=== PATIENT | female | born 1970 | race Caucasian/White ===

== ENCOUNTER → 2017-10-26 | Day surgery (SDC) | payer OTHER ==
[~2017-10-26] MED LIST: Lidocaine 1% 20 ML MDV ONE
--- NOTE | 2017-10-27 10:14 | OR ---
DATE OF OPERATION: 10/27/2017 PREOPERATIVE DIAGNOSIS: VENOUS INSUFFICIENCY WITH PAINFUL VARICOSE VEINS. POSTOPERATIVE DIAGNOSIS: VENOUS INSUFFICIENCY WITH PAINFUL VARICOSE VEINS. SURGEON: Rajesh Anthony MD PROCEDURE: MARIANA LEFT GSV. ANESTHESIA: Local with tumescent. COMPLICATIONS: None. SPECIMEN: None. FINDINGS: Successful MARIANA, left GSV. INDICATIONS: The patient has documented venous insufficiency at the saphenofemoral junction. She has a painful symptomatic varicosities and elected to proceed with endovenous ablation. DESCRIPTION OF PROCEDURE: The patient was brought to the operating room suite and the insufficient saphenous vein was mapped via ultrasound and diagrammed on the overlying skin. The entire limb was prepped and draped in sterile fashion. The patient was placed in a reverse Trendelenburg position and anesthesia instilled over the access site at the level of the knee. The vein was accessed using ultrasound guidance and Seldinger technique with a guidewire introduced through the needle. The needle was removed. A small incision was made with 11 blade scalpel and a 6-[place] sheath was advanced over the guidewire into the vein without any complication. Sheath was held in place by skin tension. Guidewire was removed. The sheath was flushed and radiofrequency probe was placed into the vein through the sheath and positioned approximately 2.2 cm distal to the saphenofemoral junction under ultrasound guidance. After probe position, again verified via ultrasound, tumescent anesthesia was infiltrated under ultrasound guidance into the perivenous compartment along the length of the vein from the entry site to the saphenofemoral junction until a halo affect was noted around the vein. The patient was placed back in Trendelenburg position to exsanguinate the superficial system. Once radiofrequency probe position again confirmed via ultrasound and under direct external compression along the length of the heating element, radiofrequency energy was applied. The vein was segmentally ablated heating at 7 cm segment and indexing the catheter forward 6.5 cm until the treatment length complete. Device temperature was maintained at 120 degrees Celsius with an initial power level of 40 heart, dropping below 20 for each treatment. Total treatment time was 4 minutes with 12 radiofrequency cycles and a total of 650 mL of tumescent was used. Repeat ultrasound confirmed successful treatment. Catheter and sheath were withdrawn without problem and hemostasis was achieved with direct pressure. Skin incision was closed with a bandage and compression wrap was applied from the level of the foot to the groin. The patient was stable in recovery room. NERI/POP /[id number]
== END ==
LOC: CC.SDS 06:25
PROVIDERS: ATTEND Family Medicine
DX: I87.2 Venous insufficiency (chronic) (peripheral) (principal); I83.812 Varicose veins of left lower extremity with pain; Z88.2 Allergy status to sulfonamides
CPT/HCPCS: 36475; A4216

== ENCOUNTER → 2018-09-12 | Day surgery (SDC) | payer OTHER ==
--- NOTE | 2018-09-19 23:24 | OR ---
DATE OF OPERATION: 09/12/2018 PREOPERATIVE DIAGNOSIS: INSUFFICIENT RIGHT ANTERIOR ACCESSORY VEIN WITH ASSOCIATED PAINFUL VARICOSITIES. POSTOPERATIVE DIAGNOSIS: INSUFFICIENT RIGHT ANTERIOR ACCESSORY VEIN WITH ASSOCIATED PAINFUL VARICOSITIES. SURGEON: Rajesh Anthony MD PROCEDURE: ATTEMPTED MARIANA RIGHT ANTERIOR ACCESSORY VEIN. ANESTHESIA: Local. COMPLICATIONS: None. SPECIMEN: None. FINDINGS: Unsuccessful endovenous ablation, right anterior accessory vein. INDICATIONS: The patient has a prior endovenous ablation. She has painful varicosities in her right upper leg associated with a short segment anterior accessory vein, which is slightly tortuous. We elected to attempt endovenous ablation. DESCRIPTION OF PROCEDURE: The patient was brought to the operating room site and the insufficient right anterior accessory vein in the upper thigh diagrammed and mapped via ultrasound on the overlying skin. The entire leg was prepped and draped in sterile fashion. The patient was placed in reverse Trendelenburg position. Access site was isolated, 1% lidocaine was used for local anesthesia, and using Seldinger technique we were able to access the site with a needle and insert a guidewire. A small incision was made with an 11-blade scalpel. After needle was removed and wire left in the vein, we were able to place a sheath over the guidewire. Unfortunately, the tortuous segment was unable to be threaded with the sheath to facilitate placement of endovenous catheter. Multiple repeat attempts were made and were unsuccessful at accessing as the vein clamped down pretty tight after the initial catheter placement perforated the vein wall. We elected to terminate the procedure at that point. There were no complications. The patient was stable in the recovery room. NERI/POP /[id number]
== END ==
LOC: CC.SDS 08:43
PROVIDERS: ATTEND Family Medicine
DX: I83.811 Varicose veins of right lower extremity with pain (principal); I87.2 Venous insufficiency (chronic) (peripheral)
CPT/HCPCS: 36475; A4216

== ENCOUNTER → 2020-06-19 | Day surgery (SDC) | payer OTHER ==
[~2020-06-19] MED LIST changes: +Ketamine 200 MG/20 ML MDV IV ONE; +Lactated Ringers 1,000 ML IV SCH; -Lidocaine 1% 20 ML MDV ONE; +Propofol 200 MG/20 ML SDV IV ONE; +fentaNYL 100 MCG/2 ML SDV IV ONE
--- NOTE | 2020-06-19 14:14 | OR ---
DATE OF OPERATION: 06/19/2020 PREOPERATIVE DIAGNOSIS: SCREENING COLONOSCOPY. POSTOPERATIVE DIAGNOSIS: SCREENING COLONOSCOPY. SURGEON: Rajesh Anthony MD PROCEDURE: FULL-LENGTH COLONOSCOPY WITH SNARE POLYPECTOMY X1. ANESTHESIA: MAC. COMPLICATIONS: None. SPECIMEN: Proximal ascending colon, villous adenoma, approximately 8 to 10 mm in size. RECOMMENDATIONS: Followup colonoscopy in 1 year. INDICATIONS: The patient was in for a routine exam. She has never had a colon cancer screening. She elected for a screening colonoscopy. DESCRIPTION OF PROCEDURE: The patient was prepped and draped, placed in the left lateral decubitus position. A lubricated Olympus colonoscope was inserted and with ease advanced to the cecum. We were able to directly visualize the ileocecal valve and appendiceal orifice. The bowel prep was adequate. Upon withdrawal, the cecum appeared benign. In the proximal to mid ascending colon, the patient had a flat villous adenoma, approximately 8 to 10 mm in size. It was along the haustral fold, very challenging to get to. We were able to remove it with 2 separate snare pieces without any complication. Both were suctioned into polyp trap #1 without difficulty. The rest of the ascending and transverse colon appeared benign. Throughout the left colon, I could find no other polyps, masses, ulceration, or bleeding sites. No vascular abnormalities or signs of colitis. There were no diverticula. The rectal vault appeared benign. Retroflexion showed no anal lesions. Air was suctioned, scope removed without complication. NERI/POP /[id number]
== END ==
LOC: CC.SDS 08:57
PROVIDERS: ATTEND Family Medicine
DX: Z12.11 Encounter for screening for malignant neoplasm of colon (principal); K63.5 Polyp of colon; Z88.2 Allergy status to sulfonamides; Z79.899 Other long term (current) drug therapy
CPT/HCPCS: 00812; J2704; J3010; J7120

== ENCOUNTER → 2021-06-04 | Day surgery (SDC) | payer OTHER ==
[~2021-06-04] MED LIST changes: -Ketamine 200 MG/20 ML MDV IV ONE; +Ketamine 200 MG/20 ML MDV ONE; -Propofol 200 MG/20 ML SDV IV ONE; +Propofol 200 MG/20 ML SDV ONE; -fentaNYL 100 MCG/2 ML SDV IV ONE; +fentaNYL 100 MCG/2 ML SDV ONE
--- NOTE | 2021-06-04 11:00 | OR ---
DATE OF OPERATION: 06/04/2021 PREOPERATIVE DIAGNOSIS: HISTORY OF POLYPS. POSTOPERATIVE DIAGNOSIS: HISTORY OF POLYPS. SURGEON: Rajesh Anthony MD PROCEDURE: DIAGNOSTIC COLONOSCOPY. ANESTHESIA: MAC. COMPLICATIONS: None. SPECIMEN: None. FINDINGS: Normal full-length colonoscopy without polyp recurrence. RECOMMENDATIONS: Followup colonoscopy in 5 years. INDICATIONS: The patient had a larger villous lesion removed a year ago. We were doing a followup in that regard. DESCRIPTION OF PROCEDURE: The patient was prepped and draped, placed in the left lateral decubitus position. A lubricated Olympus colonoscope was inserted and with ease advanced to the cecum. Direct visualization of the ileocecal valve and appendiceal orifice was accomplished. The bowel prep was marginal. There was a lot of stool throughout the colon, most of it was liquid, but with particulate matter, and was very difficult to suction all of it. We did thoroughly irrigate the right colon to get a good look at where her previous removal was. However, upon withdrawal, the cecum and ascending colon appeared benign. The prior area of polyp removal showed no recurrence that I could visualize. We did irrigate thoroughly here to make sure. The rest of the colon showed no polyps, masses, ulceration, or bleeding sites. No vascular abnormalities or signs of colitis. The rectal vault was benign. Retroflexion showed no perianal lesions. Air was suctioned and scope removed without complication. NERI/POP /[id number]
== END ==
LOC: CC.SDS 07:46
PROVIDERS: ATTEND Family Medicine
DX: Z09 Encounter for follow-up examination after completed treatment for conditions other than malignant neoplasm (principal); Z86.010 Personal history of colon polyps; I83.819 Varicose veins of unspecified lower extremity with pain; Z88.2 Allergy status to sulfonamides; E66.9 Obesity, unspecified; Z68.43 Body mass index [BMI] 50.0-59.9, adult
CPT/HCPCS: J2704; J3010; J7120

== ENCOUNTER 2024-01-24 13:38 | Day surgery (SDC) | payer BC ==
[2024-01-24] MEDS: Lidocaine 1% 30 ML SDV SUBCUT ONE ×2 (15:37→15:49)
== END 2024-01-24 16:24 | disposition home or self-care (01) ==
LOC: CC.SDS 13:38
PROVIDERS: ATTEND Family Medicine
DX: I83.813 Varicose veins of bilateral lower extremities with pain (principal); I87.2 Venous insufficiency (chronic) (peripheral); I10 Essential (primary) hypertension; Z79.899 Other long term (current) drug therapy; Z88.2 Allergy status to sulfonamides
CPT/HCPCS: C1888; J3490

== ENCOUNTER 2024-07-17 07:39 | Emergency (ER) | payer BC | END 2024-07-17 08:20 | disposition home or self-care (01) | LOC: CC.ED 07:39 | DX: I83.891 Varicose veins of right lower extremity with other complications (principal); I10 Essential (primary) hypertension; Z79.899 Other long term (current) drug therapy; Z88.2 Allergy status to sulfonamides | CPT/HCPCS: 99283 ==

== ENCOUNTER 2024-12-09 07:57 | Emergency (ER) | payer BC | END 2024-12-09 08:20 | disposition home or self-care (01) | LOC: CC.ED 07:57 | DX: I83.811 Varicose veins of right lower extremity with pain (principal); I11.0 Hypertensive heart disease with heart failure; I50.9 Heart failure, unspecified; Z88.2 Allergy status to sulfonamides; Z79.899 Other long term (current) drug therapy | CPT/HCPCS: 99283; 99284 ==